=== PATIENT | male | born 2005 | race Caucasian/White ===

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

== ENCOUNTER 2025-06-03 06:36 | Emergency (ER) | payer BC ==
--- OUTSIDE RECORDS SUMMARY | 2025-06-03 06:40 | XMS REPORT | Continuity of Care Document ---
Author Name Unknown Address [address] [place] [address] [facility] Address 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 Name Role Phone Pcp, Patient Does Not Have A Primary Care Physic brian Guicho CORTES Attending Clinician Unavailable Guicho CORTES Attending Clinician Unavailable MIKEY BIANCHI Attending Clinician Unavailable ADRIENNE MONZON Attending Clinician Unava lisaable Adrienne Monzon DO Attending Clinician [phone] Guicho CORTES Admitting Clinician Unavailable Payers Payer Name Policy Type Policy Number Effective Date Expirati on Date Source [facility] [id number] 2021 00:00:00 [place] [employer] [id number] 2023 00:00:00 Problems Condition Name Condition Details Condition Category Status Onset Date Resolution Date Last Treatment Date Treating Clinician Comments Source ADHD (attention deficit hyperactiv ity disorder), combined type ADHD (attention deficit hyperactiv ity disorder), combined type Disease Active 05-08 00:00: 00 [facility] Allergies, Adverse Reactions, Alerts Allergy Name Allergy Type Status Severity Reaction(s) Onset Date Inactive Date Treating Clinician Comments Source NO KNOWN ALLERGIE S Drug Class Active [facility] Social History Social Habit Start Date Stop Date Quantity Comments Source [facility] Social function 2025-04-04 00:00:00 2025-04-04 00:00:00 [facility] Exposure to SARS-CoV-2 (event) 2023-03-08 00:00:00 2023-03-18 10:33:00 Not sure [facility] Sex assigned at 2005 00:00:00 2005 00:00:00 [facility] Smoking Status Start Date Stop Date Source Tobacco smoking consumption unknown [facility] Never smoked tobacco [facility] Medications Ordered Medication Name Filled Medication Name Start Date Stop Date Current Medication? Ordering Clinician Indication Dosage Frequency Signature (SIG) Comments Components Source doxycycline hyclate (Vibramycin ) capsule 100 mg 04-05 00:30: 00 04-05 00:42 :00 No 100mg 100 mg, Oral, ONCE, 1 dose, On Wed04/04/25 at 1930, TREVON, Reason for Anti-Infec tive: Documented Infection, Documented Infection Site: Urine, Duration of therapy: Once (ED) [facility] cefTRIAXone (ROCEPHIN) 500 mg in NaCl 0.9% (NS) 100 mL piggyback cefTRIAXone (ROCEPHIN) 500 mg in NaCl 0.9% (NS) 100 mL piggyback 04-05 00:30: 00 04-05 01:00 :00 Yes 500mg 500 mg, Intravenou s, ONCE, 1 dose, On Wed04/04/25 at 1930, Administer over 30 Minutes, 100 mL, Reason for Anti-Infec tive: Documented Infection, Documented Infection Site: Urine, Duration of therapy: Once (ED) [facility] NaCl 0.9% (NS) bolus infusion 1,000 mL 04-04 22:30: 00 04-05 00:35 :00 No 1000mL at 999 mL/hr, 1,000 mL, IV Infusion, ONCE, 1 dose, On Wed04/04/25 at 1730, STAT [facility] ondansetron (ZOFRAN (PF)) injection 4 mg 04-04 22:30: 00 04-04 21:48 :00 No 4mg 4 mg, Slow IV Push, ONCE, 1 dose, On Wed04/04/25 at 1730, 2 mL [facility] famotidine (PEPCID (PF)) 20 mg in NaCl 0.9% (NS) 5 mL IV push 04-04 21:30: 00 04-04 21:51 :00 No 20mg 20 mg, Intravenou s, ONCE, 1 dose, On Wed04/04/25 at 1630, Administer over 2 Minutes, 5 mL [facility] doxycycline hyclate 100 mg capsule 04-04 00:00: 00 Yes [id number] 100mg Take 1 capsule by mouth in the morning and 1 capsule in the evening. [facility] dextroamphe tamine-amph etamine (ADDERALL) 10 mg tablet 12-23 00:00: 00 Yes 10mg Take 1 tablet by mouth every morning. [facility] Guanfacine (INTUNIV) 1 mg tablet 11-04 00:00: 00 Yes [id number] 2mg Take 2 tablets by mouth at bedtime. [facility] Immunizations Ordered Immunization Name Filled Immunization Name Date Status Comments Source Meningococcal B, OMV 2023-03-18 00:00:00 Completed [facility] SARS-COV-2 COVID-19 GILLIAN-SUCROSE VACCINE 12 YRS+, BIVALENT 0.3ML, IM, (PFIZER SALDIVAR TOP) 2023-03-18 00:00:00 Completed [facility] Meningococcal Polysaccharide (groups A, C, Y and W-135) conjugate vaccine (MCV4P) 2022-03-25 00:00:00 Completed [facility] SARS-COV-2 COVID-19 PFIZER VACCINE 2021-04-24 00:00:00 Completed [facility] SARS-COV-2 COVID-19 PFIZER VACCINE 2021-04-03 00:00:00 Completed [facility] Flu Trivalent 2019-09-19 00:00:00 Completed [facility] Influenza Virus Vaccine Quad .5 mL IM 6+ MO 2018-12-15 00:00:00 Completed [facility] HPV9 2018-06-03 00:00:00 Completed [facility] Influenza Virus Vaccine Quad .5 mL IM 6+ MO 2017-11-11 00:00:00 Completed [facility] TDAP 2017-07-01 00:00:00 Completed [facility] Meningococcal Polysaccharide (groups A, C, Y and W-135) conjugate vaccine (MCV4P) 2017-07-01 00:00:00 Completed [facility] HPV9 2017-07-01 00:00:00 Completed [facility] Varicella (varivax)(chicken pox) 2010-03-07 00:00:00 Completed [facility] Varicella (varivax)(chicken pox) 2010-03-07 00:00:00 Completed [facility] MMR 2009-07-02 00:00:00 Completed Dtap/ipv 2009-07-02 00:00:00 Completed MMR 2009-07-02 00:00:00 Completed [facility] Dtap/ipv 2009-07-02 00:00:00 Completed [facility] DTAP 2008-06-01 00:00:00 Completed [facility] HEPATITIS A 2008-06-01 00:00:00 Completed Pneumococcal 7 Conjugate, PCV7 (Prevnar7) 2008-06-01 00:00:00 Completed Pneumococcal 7 Conjugate, PCV7 (Prevnar7) 2008-06-01 00:00:00 Completed [facility] HEPATITIS A 2008-06-01 00:00:00 Completed [facility] DTaP, Unspecified Formulation 2008-06-01 00:00:00 Completed [facility] HIB 4 Dose Schedule 2006-08-18 00:00:00 Completed HEPATITIS A 2006-08-18 00:00:00 Completed Pediarix (dtap/hep B/ipv) 2006-08-18 00:00:00 Completed Proquad (MMR/VARICELLA) 2006-08-18 00:00:00 Completed Pneumococcal 7 Conjugate, PCV7 (Prevnar7) 2006-08-18 00:00:00 Completed Pneumococcal 7 Conjugate, PCV7 (Prevnar7) 2006-08-18 00:00:00 Completed [facility] Proquad (MMR/VARICELLA) 2006-08-18 00:00:00 Completed [facility] HIB 4 Dose Schedule 2006-08-18 00:00:00 Completed [facility] HEPATITIS A 2006-08-18 00:00:00 Completed [facility] Pediarix (dtap/hep B/ipv) 2006-08-18 00:00:00 Completed [facility] HIB 4 Dose Schedule 2006-03-31 00:00:00 Completed Pediarix (dtap/hep B/ipv) 2006-03-31 00:00:00 Completed Pneumococcal 7 Conjugate, PCV7 (Prevnar7) 2006-03-31 00:00:00 Completed Pneumococcal 7 Conjugate, PCV7 (Prevnar7) 2006-03-31 00:00:00 Completed [facility] HIB 4 Dose Schedule 2006-03-31 00:00:00 Completed [facility] Pediarix (dtap/hep B/ipv) 2006-03-31 00:00:00 Completed [facility] HIB 4 Dose Schedule 2006-01-04 00:00:00 Completed Pediarix (dtap/hep B/ipv) 2006-01-04 00:00:00 Completed Pneumococcal 7 Conjugate, PCV7 (Prevnar7) 2006-01-04 00:00:00 Completed Pneumococcal 7 Conjugate, PCV7 (Prevnar7) 2006-01-04 00:00:00 Completed [facility] HIB 4 Dose Schedule 2006-01-04 00:00:00 Completed [facility] Pediarix (dtap/hep B/ipv) 2006-01-04 00:00:00 Completed [facility] Hep B, Adol or Pedi Dosage 2005 00:00:00 Completed [facility] Vital Signs Vital Name Observation Time Observation Value Comments S ource Systolic blood pressure 2025-04-05 01:00:00 137 mm[Hg] [facility] Diastolic blood pressure 2025-04-05 01:00:00 76 mm[Hg] [facility] Heart rate 2025-04-05 01:00:00 54 /min [facility] Body temperature 2025-04-05 01:00:00 36.67 Daphne [facility] Respiratory rate 2025-04-05 01:00:00 16 /min [facility] Oxygen saturation in Arterial blood by Pulse oximetry 2025-04-05 01:00:00 98 /min [facility] Body height 2025-04-04 20:53:00 175.3 cm [facility] Body weight 2025-04-04 20:53:00 74.844 kg [facility] BMI 2025-04-04 20:53:00 24.37 kg/m2 [facility] Systolic blood pressure 2023-03-18 15:33:00 125 mm[Hg] [facility] Diastolic blood pressure 2023-03-18 15:33:00 79 mm[Hg] [facility] Heart rate 2023-03-18 15:33:00 60 /min [facility] Body temperature 2023-03-18 15:33:00 36.56 Daphne [facility] Respiratory rate 2023-03-18 15:33:00 20 /min [facility] Body height 2023-03-18 15:33:00 170 cm [facility] Body weight 2023-03-18 15:33:00 61.9 kg [facility] BMI 2023-03-18 15:33:00 21.42 kg/m2 [facility] Body mass index (BMI) [Percentile] Per age and sex 2023-03-18 15:33:00 44.99 % [facility] Oxygen saturation in Arterial blood by Pulse oximetry 2023-03-18 15:33:00 99 /min [facility] Procedures Procedure Date / Time Performed Performing Clinician Source US GALL BLADDER 2025-04-04 22:05:41 [facility] 2025-04-04 21:46:00 Guicho Cortes [facility] LIPASE 2025-04-04 21:39:00 [facility] MAGNESIUM 2025-04-04 21:39:00 Guicho Cortes [facility] COMP. METABOLIC PANEL ([id number]) 2025-04-04 21:39:00 Guicho Cortes [facility] CBC WITH DIFF 2025-04-04 21:39:00 Guicho Cortes [facility] GC & CHLAMYDIA AMPLIFIED ASSAY 2023-03-18 16:17:00 Adrienne Monzon [facility] HIV 1/2 AG-AB WITH REFLEX 2023-03-18 16:17:00 Adrienne Monzoninne [facility] SYPHILIS IGG/IGM 2023-03-18 16:17:00 Tracy Monzoninne [facility] MENINGOCOCCAL B VACCINE, OMV, 2 DOSE, IM 2023-03-18 16:11:49 Adrienne Monzon Adrienne [facility] SARS-COV-2 COVID-19 GILLIAN-SUCROSE VACCINE 12 YRS+, BIVALENT 0.3ML, IM, (PFIZER SALDIVAR TOP) 2023-03-18 16:11:49 Adrienne Monzoninne [facility] Encounters Start Date/Time End Date/Time Encounter Type Admission Type Attending Clinicians Care Facility Care Department Encounter ID Source 2025-04-04 15:54:00 2025-04-04 20:39:00 Emergency X Guicho CORTES K [facility] ERT [id number] [facility] 2024-06-15 10:00:00 2024-06-15 10:00:00 Outpatient MIKEY ADAMS [facility] [id number] [facility] 2023-03-18 10:30:00 2023-03-18 11:22:45 Outpatient ADRIENNE LARRY [facility] [id number] [facility] 2023-03-18 10:30:00 2023-03-18 11:22:45 Office Visit Adrienne Monzon [facility] [id number] [facility] 2022-02-19 15:00:00 2022-02-19 15:00:00 Outpatient R [facility] [id number] [facility] Results Test Description Test Time Test Comments Results Resul t Comments Source US Gall bladder 2025-03-25 22:47:12 EXAM: US GALL BLADDER HISTORY: 19 years-old Male; Provided indication: r/o cholecystitis . Rightupper quadrant abdominal pain. TECHNIQUE: Limited abdominal ultrasound focused on the gallbladder wasperformed. The main portal vein was evaluated with color Doppler.Representativ e images were obtained for the record. COMPARISON: None FINDINGS: The gallbladder is normal in size. No stone, wall thickening, orpericholecystic fluid is seen. The patient denied pain to sonographicpalpation. No biliary ductal dilatation is seen. The common duct is 2 mm in diameter. [facility] ([id number])2025-04-04 22:11:28* Test Item Value Reference Range Interpretation Comme nts NA (test code = 7698056365) 138 mmol/L 135-145 K (test code = 5981341247) 4 mmol/L 3.5-5.0 CL (test code = 7430754688) 102 mmol/L 98-108 CO2 TOTAL (test code = 7969118760) 30 mmol/L 23-31 AGAP (test code = 6758276499) 6 2-16 BUN (test code = 3231031752) 13 mg/dL 7-23 GLUCOSE (test code = 1277370225) 97 mg/dL 70-110 CREATININE (test code = 2160-0) 0.96 mg/dL 0.60-1.25 TOTAL BILI (test code = 7955239613) 1.4 mg/dL 0.1-1.1 H CALCIUM (test code = 9920859532) 9.2 mg/dL 8.6-10.6 T PROTEIN (test code = 8308147370) 7.5 g/dL 6.3-8.2 ALBUMIN (test code = 3400968193) 4.7 g/dL 3.5-5.0 ALK PHOS (test code = 7180477821) 92 U/L 34-122 ALTv (test code = 1742-6) 29 U/L 5-50 AST(SGOT) (test code = 1827988788) 29 U/L 13-40 eGFR (test code = 79591-8) 116.8 mL/min/1.73m2 CKD-EPI eGFR (2020). Assuming creatinine has been stable day-to-day for at least three months, the eGFR indicates Category G1 (>= 90 mL/min/1.73 m2) Lab Interpretation (test code = 80876-5) [facility] 22:11:27* Test Item Value Reference Range Interpretation Comme nts LIPASE (test code = 9747400956) 50 U/L 0-220 Lab Interpretation (test cod e = 50336-1) Normal [facility] with [id number] 22:01:41* Test Item Value Reference Range Interpretation Comme nts WBC (test code = 6690-2) 6.45 4.20-10.70 RBC (test code = 789-8) 5.73 4.26-5.52 H HGB (test code = 718-7) 17 g/dL 12.2-16.4 H HCT (test code = 4544-3) 50.6 % 38.4-49.3 H MCV (test code = 787-2) 88.3 fL 81.7-95.6 MCH (test code = 785-6) 29.7 pg 26.1-32.7 MCHC (test code = 786-4) 33.6 g/dL 31.2-35.0 RDW-SD (test code = 87464-3) 41.1 fL 38.5-51.6 RDW-CV (test code = 788-0) 12.6 % 12.1-15.4 PLT (test code = 777-3) 253 150-328 MPV (test code = 34422-3) 9.2 fL 9.8-13.0 L NRBC/100 WBC (test code = 9143698694) 0 0.0-10.0 NRBC x10^3 (test code = 0393733486) See_Comment [Automated messa ge] The system which generated this result transmitted reference range: 10*3/?L. The reference range was not used to interpret this result as normal/abnormal. GRAN MAT (NEUT) % (test code = 770-8) 64.5 % IMM GRAN % (test code = 8968779514) 0.2 % LYMPH % (test code = 736-9) 23.3 % MONO % (test code = 5905-5) 8.1 % EOS % (test code = 713-8) 3.1 % BASO % (test code = 706-2) 0.8 % GRAN MAT x10^3(ANC) (test code = 4971847504) 4.17 10*3/uL 1.99-6.95 IMM GRAN x10^3 (test code = 9234973772) 0.00-0.06 LYMPH x10^3 (test code = 731-0) 1.5 10*3/uL 1.09-3.23 MONO x10^3 (test code = 742-7) 0.52 10*3/uL 0.36-1.02 EOS x10^3 (test code = 711-2) 0.2 10*3/uL 0.06-0.53 BASO x10^3 (test code = 704-7) 0.05 10*3/uL 0.01-0.09 Lab Interpretation (test code = 49952-4) [facility] [id number] 16:20:23* Test Item Value Reference Range Interpretation Comme nts Syphilis IgG/IgM (test code = 16357-0) Non-reactive Non-reactive LIZET (test code = LIZET) Non-reactive - No serologic evidence of T. pallidum infection. Cannot exclude incubating or early syphilis. Submit a second specimen in 2-4 weeks if syphilis is clinically suspected. Equivocal - Further testing to follow. Reactive - Further testing to follow. Lab Interpretation (test code = 45909-8) [facility] [id number] 16:20:23* Test Item Value Reference Range Interpretation Comme nts Syphilis IgG/IgM (test code = 65392-1) Non-reactive Non-reactive LIZET (test code = LIZET) Non-reactive - No serologic evidence of T. pallidum infection. Cannot exclude incubating or early syphilis. Submit a second specimen in 2-4 weeks if syphilis is clinically suspected. Equivocal - Further testing to follow. Reactive - Further testing to follow. Lab Interpretation (test code = 89107-2) Normal [facility] 1/2 AG-AB WITH [id number] 20:48:57* Test Item Value Reference Range Interpretation Comme nts HIV Semi-quantitative (test code = 85583-1) 0.07 Negative LIZET (test code = LIZET) Non-reactive for HIV-1 antigen and HIV-1/HIV-2 antibodies. ?No laboratory evidence of HIV infection. ?Repeat in 2-4 weeks if acute HIV infection is suspected. [facility] [id number] 20:48:57* Test Item Value Reference Range Interpretation Comme nts HIV Semi-quantitative (test code = 84914-7) 0.07 Negative LIZET (test code = LIZET) Non-reactive for HIV-1 antigen and HIV-1/HIV-2 antibodies. ?No laboratory evidence of HIV infection. ?Repeat in 2-4 weeks if acute HIV infection is suspected. [facility] Notes Date/Time Note Provider Source 2025-04-04 20:39:25 Patient is awake and alert, oriented x4, speech is clear and appropriate, ambulatory with a steady gait. Advised to seek medical attention for new/prolonged/worsening of symptoms. Respirations even and unlabored, no distress. Karrie Piedra RN [facility] 2025-04-04 15:52:27 Patient reports n/v with periumbilical pain since yesterday. No hx of abd surgeries. Denies diarrhea. No meds taken today. No significant med hx, no prescriptions. Deon Morillo RN [facility]
[2025-06-03] MEDS ORDERED: HALOPERIDOL LACT 5 MG/ML INJ ONE (07:40)
[2025-06-03] MEDS ORDERED: NA CHLORIDE 0.9% 1,000 ML ONE (07:40)
[2025-06-03] MEDS ORDERED: NA CHLORIDE 0.9% 50 ML ONE (07:44)
--- NOTE | 2025-06-03 08:06 | RAD REPORT ---
EXAM: Chest Single View HISTORY: 20 years Male COUGH COMPARISON: No prior exams FINDINGS: LUNGS/PLEURA: The lungs are clear. No pleural effusions or pneumothorax. No pulmonary edema. CARDIAC/MEDIASTINUM: The cardiac silhouette is within normal limits. UPPER ABDOMEN: No significant abnormality. BONES: No acute abnormality. LINES/TUBES/OTHER: N/A IMPRESSION: No evidence of acute cardiopulmonary disease.
--- NOTE | 2025-06-03 08:17 | ER ---
Nurse's Notes [facility] Name: Salvador Weston Age: 20 yrs Sex: Male : 2005 Arrival Date: 06/03/2025 Time: 06:36 Bed 14 Private MD: Diagnosis: Vomiting;Cough Presentation: 06/03 07:15 Chief complaint: Patient states: SMOKED OUT OF A ROTTEN POTATOE 3 DAYS AGO BECAUSE RAN db OUT OF PAPER. STATES THIS AM STARTED COUGHING AND SPITTING UP BLACK STUFF. Coronavirus screen: Client denies travel out of the [place] in the last 14 days. At this time, the client does not indicate any symptoms associated with coronavirus-19. Ebola Screen: Patient negative for fever greater than or equal to 101.5 degrees Fahrenheit, and additional compatible Ebola Virus Disease symptoms Patient denies exposure to infectious person. Patient denies travel to an Ebola-affected area in the 21 days before illness onset. No symptoms or risks identified at this time. Initial Sepsis Screen: Does the patient meet any 2 criteria? No. Patient's initial sepsis screen is negative. Does the patient have a suspected source of infection? No. Patient's initial sepsis screen is negative. Risk Assessment: Do you want to hurt yourself or someone else? Patient reports no desire to harm self or others. Onset of symptoms was June 03, 2025. 07:15 Method Of Arrival: Ambulatory db 07:15 Acuity: ALYCE 3 db Triage Assessment: 07:24 General: Appears in no apparent distress. comfortable, Behavior is calm, cooperative. db Pain: Denies pain. Neuro: Level of Consciousness is awake, alert, obeys commands, Oriented to person, place, time, situation. Historical: - Allergies: 07:24 No Known Allergies; db - PMHx: 07:24 ADD/ADHD; db - Immunization history:: Adult Immunizations unknown. - Infectious Disease History:: Denies. - Social history:: Smoking status: Patient denies any tobacco usage or history of. Patient uses street drugs, marijuana. Screenin:25 [facility] ED Fall Risk Assessment (Adult) History of falling in the last 3 months, db including since admission No falls in past 3 months (0 pts) Confusion or Disorientation No (0 pts) Intoxicated or Sedated No (0 pts) Impaired Gait No (0 pts) Mobility Assist Device Used No (0 pt) Altered Elimination No (0 pt) Score/Fall Risk Level 0 - 2 = Low Risk Oriented to surroundings, Maintained a safe environment. Abuse screen: Denies threats or abuse. Denies injuries from another. Nutritional screening: No deficits noted. Tuberculosis screening: No symptoms or risk factors identified. Assessment: 07:25 Reassessment: Patient appears in no apparent distress at this time. Patient and/or db family updated on plan of care and expected duration. Pain level reassessed. Patient is alert, oriented x 3, equal unlabored respirations, skin warm/dry/pink. SEE TRIAGE FOR INITIAL ASSESSMENT. 07:53 Reassessment: Patient appears in no apparent distress at this time. Patient and/or db family updated on plan of care and expected duration. Pain level reassessed. Patient is alert, oriented x 3, equal unlabored respirations, skin warm/dry/pink. 08:22 Reassessment: PATIENT PROVIDED GATORADE FOR PO CHALLENGE. db 08:45 Reassessment: Patient appears in no apparent distress at this time. Patient and/or db family updated on plan of care and expected duration. Pain level reassessed. Patient is alert, oriented x 3, equal unlabored respirations, skin warm/dry/pink. PT TOLERATED PO CHALLENGE. General: Appears in no apparent distress. comfortable, Behavior is calm, cooperative. Neuro: Level of Consciousness is awake, alert, obeys commands, Oriented to person, place, time, situation. Respiratory: Airway is patent Respiratory effort is even, unlabored, Respiratory pattern is regular, symmetrical. Vital Signs: 07:15 BP 135 / 84; Pulse 68; Resp 16; Temp 98.2(O); Pulse Ox 96% ; Weight 72.57 kg; Height 5 db ft. 9 in. ; 07:30 BP 146 / 75; Pulse 67; Resp 16; Pulse Ox 98% on R/A; db 08:30 BP 152 / 78; Pulse 68; Resp 16; Pulse Ox 98% ; db 07:15 Body Mass Index 23.63 (72.57 kg, 175.26 cm) - Percentile 57.5 % db ED Course: 06:46 Patient arrived in ED. gm2 07:03 Nicol Carter MD is Attending Physician. sw6 07:22 Letha Kaufman, NICHOLAS is Primary Nurse. db 07:24 Triage completed. db 07:24 Arm band placed on Patient placed in an exam room. db 07:25 Patient has correct armband on for positive identification. Bed in low position. Call db light in reach. Side rails up X 1. Pulse ox on. NIBP on. Pillow given. 07:25 No provider procedures requiring assistance completed. db 07:38 Inserted saline lock: 20 gauge in right antecubital area, using aseptic technique. db Blood collected. Flushed with 10 mL NS. 08:04 CXR XRAY In Process Unspecified. EDMS 08:54 Provided Education on: DISCHARGE AND FOLLOWUP. db 08:54 IV discontinued, intact, bleeding controlled, No redness/swelling at site. db Administered Medications: 07:42 Drug: Haloperidol IVP 2.5 mg/50 mL 2.5 mg IVP once; Place patient on a monitoring coordinator db Route: IVP; Site: right antecubital; 08:24 Follow up: Response: No adverse reaction db 07:42 Drug: NS 0.9% IV 1000 ml IV at 1000 ml once; to be given as a bolus over 60 minutes db Route: IV; Rate: 1000 ml; Site: right antecubital; 08:24 Follow up: Response: No adverse reaction; IV Status: Completed infusion; IV Intake: db 1000ml Medication: 07:25 VIS not applicable for this client. db Intake: 08:24 IV: 1000ml; Total: 1000ml. db Outcome: 08:16 Discharge ordered by . sw 08:54 Discharged to home ambulatory, db 08:54 Condition: stable 08:54 Discharge instructions given to patient, Instructed on discharge instructions, follow up and referral plans. 08:57 Patient left the ED. db Signatures: Dispatcher [employer] EDDE Letha Kaufman, RN RN Jesi Magaña 2 Nicol Carter MD MD sw6
--- NOTE | 2025-06-03 08:17 | EDPHYS ---
Physician Documentation [facility] Name: Salvador Weston Age: 20 yrs Sex: Male : 2005 Arrival Date: 06/03/2025 Time: 06:36 Bed 14 Private MD: ED Physician Nicol Carter HPI: 06/03 07:20 This 20 yrs old Male presents to ER via Unassigned with complaints of Cough, sw6 smoked a rotten potato/spitting black stuff up. 07:20 the patient presents from home for eval for an episode of coughing this AM. he reports sw6 he had vaped something that was given to him from a friend. he had also used THC earlier in the evening. no sob. no fevers. no sick contacts. he also c/o n/v earlier today. no bad food exposure. no recent trips or travels. no diarrhea. 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 No prior abdominal surgeries. He denies any history of high blood pressure or diabetes. He reports he has not eaten much in the past several days. Here for evaluation.. 07:44 The patient or guardian reports cough, once. Onset: The symptoms/episode began/occurred sw6 today. The patient has not experienced similar symptoms in the past. Historical: - Allergies: 07:24 No Known Allergies; db - PMHx: 07:24 ADD/ADHD; db - Immunization history:: Adult Immunizations unknown. - Infectious Disease History:: Denies. - Social history:: Smoking status: Patient denies any tobacco usage or history of. Patient uses street drugs, marijuana. ROS: 07:41 Constitutional: Negative for fever, chills, and weight loss, Cardiovascular: Negative sw6 for chest pain, palpitations, and edema, MS/Extremity: Negative for injury and deformity, 07:41 Respiratory: Positive for cough, with no reported sputum, Negative for dyspnea on exertion, shortness of breath, wheezing, 07:41 Abdomen/GI: Positive for nausea, vomiting, Negative for abdominal pain, diarrhea, 07:41 All other systems are negative, Exam: 07:41 Constitutional: This is a well developed, well nourished patient who is awake, alert, sw6 and in no acute distress. Chest/axilla: Normal chest wall appearance and motion. Nontender with no deformity. No lesions are appreciated. Cardiovascular: Regular rate and rhythm with a normal S1 and S2. No gallops, murmurs, or rubs. Normal PMI, no JVD. No pulse deficits. Respiratory: Lungs have equal breath sounds bilaterally, clear to auscultation and percussion. No rales, rhonchi or wheezes noted. No increased work of breathing, no retractions or nasal flaring. Abdomen/GI: Soft, non-tender, with normal bowel sounds. No distension or tympany. No guarding or rebound. No evidence of tenderness throughout. Skin: Warm, dry with normal turgor. Normal color with no rashes, no lesions, and no evidence of cellulitis. Psych: Awake, alert, with orientation to person, place and time. Behavior, mood, and affect are within normal limits. Vital Signs: 07:15 BP 135 / 84; Pulse 68; Resp 16; Temp 98.2(O); Pulse Ox 96% ; Weight 72.57 kg; Height 5 db ft. 9 in. ; 07:30 BP 146 / 75; Pulse 67; Resp 16; Pulse Ox 98% on R/A; db 08:30 BP 152 / 78; Pulse 68; Resp 16; Pulse Ox 98% ; db 07:15 Body Mass Index 23.63 (72.57 kg, 175.26 cm) - Percentile 57.5 % db MDM: 07:03 Medical Screening Exam initiated 07:41 Differential Diagnosis: Viral Syndrome Other chemical irritation, cannabis hyperemesis sw6 syndrome, food poisoning, gastroenteritis. 08:15 Data reviewed: vital signs, nurses notes, radiologic studies, plain films. ED course: sw The patient is doing well hernia. His chest x-ray shows no acute cardiopulmonary issues. He is feeling better after the antiemetics given here in the ER. He was given a p.o. challenge and able to tolerate by mouth without difficulty. He remained stable here in the ER and is okay for discharge home with PCP follow-up in 1 week. He was advised to stop smoking marijuana as well as all vaping products.. 06/03 07:20 Order name: CXR XRAY; Complete Time: 08:13 6 06/03 08:13 Interpretation: No acute disease. Administered Medications: 07:42 Drug: Haloperidol IVP 2.5 mg/50 mL 2.5 mg IVP once; Place patient on a radiographer cardiac catheterization db Route: IVP; Site: right antecubital; 08:24 Follow up: Response: No adverse reaction db 07:42 Drug: NS 0.9% IV 1000 ml IV at 1000 ml once; to be given as a bolus over 60 minutes db Route: IV; Rate: 1000 ml; Site: right antecubital; 08:24 Follow up: Response: No adverse reaction; IV Status: Completed infusion; IV Intake: db 1000ml Disposition Summary: 06/03/25 08:16 Discharge Ordered Notes: Location: Home sw6 Problem: new sw6 Symptoms: are resolved sw6 Condition: Stable sw6 Diagnosis - Vomiting sw6 - Cough sw6 Followup: sw6 - With: Private Physician - When: 2 - 3 days - Reason: Recheck today's complaints Discharge Instructions: - Discharge Summary Sheet sw6 - Nausea and Vomiting, Adult, [id number] sw6 - E-cigarette or Vaping Use-Associated Lung Injury sw6 Forms: - Medication Reconciliation Form sw6 - Antibiotic Education sw6 - Prescription Opioid Use sw6 - Patient Portal Instructions sw6 - Leadership Thank You Letter sw6 Signatures: Dispatcher [employer] Letha Barroso RN RN Nicol Torres MD MD sw6 Corrections: (The following items were deleted from the chart) 07:42 07:20 the patient presents from home for eval for an episode of coughing this AM. he sw6 reports he had vaped something that was given to him from a friend. he had used THC earlier in the evening. no sob. no fevers. no sick contacts. he also c/o n/v earlier today. no bad food exposure. no recent trips or travels. no diarrhea. 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 . sw6
[2025-06-03 09:34] VITALS: TEMP 98.2
[2025-06-03 09:39] VITALS: O2SAT 98
[2025-06-03 09:40] VITALS: BP 152/78
== END 2025-06-03 08:57 | disposition home or self-care (01) ==
LOC: ER 06:36
DX: R11.10 Vomiting, unspecified (principal); R05.9 Cough, unspecified
CPT/HCPCS: 96361; 71045; 96374; 99284; J1630; J7030